=== PATIENT | male | born 1965 | race African-American/Black ===

== ENCOUNTER 2021-06-06 12:58 | Emergency (ER) | payer OTHER ==
--- OUTSIDE RECORDS SUMMARY | 2021-06-06 13:02 | XMS REPORT | Continuity of Care Document ---
:1965 Author Organization [facility] t Address [address] [place] [address] Care Team Providers Name Role Phone JASSON Primary Care Physician Unavailable Bambi CLASSIFICATION INSPECTOR Attending Clinician Subhash BLANK Attending Clinician BAMBI Attending Clinician Unavailable Jasson ZAMORA Attending Clinician Vania ZAMORA, A Attending Clinician Jozef ZAMORA Attending Clinician Nicole ZAMORA Attending Clinician Payers Payer Name Policy Type Policy Number Effective Date Expiration Date S ource Problems Condition Condition Condition Status Onset Resolution Last Treating Co mments Source Name Details Category Date Date Treatment Clinician Date 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, coma, 1-11 ity of chronic chronic 00:00: [address] [facility] Disease Active Unive rs discharge discharge 9-24 ity of follow-up follow-up 00:00: Hilario liu [address] [place] [address] 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 9-24 ity of of of 00:00: [place] pulmonary pulmonary 00 [facility] tomi artery artery Branch Pulmonary Pulmonary Disease Active Uni vers hypertensi hypertensi 02-13 it y of on on 00:00: [place] [facility] Need for Need for Disease Active Unive rs hepatitis hepatitis 02-13 ity of C C 00:00: [place] screening screening 00 Medi tomi test test Branch Balanitis Balanitis Disease Active Uni vers 1-07 ity of 00:00: [place] [facility] Abnormal Abnormal Disease Active 2019-05 Unive rs liver liver 0- ity of enzymes enzymes 00:00: [place] [facility] Anxiety Anxiety Disease Active 2019-05 Univers about about 0- ity of health health 00:00: [place] [facility] Need for Need for Disease Active 2019-05 Unive rs influenza influenza 0 ity of vaccinatio vaccinatio 00:00: [place] [facility] Arthritis Arthritis Disease Active Uni vers of left of left 01-31 ity of hip hip 00:00: [place] [facility] Chronic Chronic Disease Active Univers left hip left hip 01-31 ity of pain pain 00:00: [place] [facility] Dyspnea, Dyspnea, Disease Active Unive rs unspecifie unspecifie 01-31 it y of d type d type 00:00: [place] [facility] COVID-19 COVID-19 Disease Active Unive rs virus virus 11-20 ity of detected detected 00:00: [place] [facility] Nonischemi Nonischemi Disease Active 2019- U nivers c c 11-20 ity of cardiomyop cardiomyop 00:[place] [facility] Left heart Left heart Disease Active 2019- U nivers failure failure 11-20 ity of 00:00: [place] [facility] Dyslipidem Dyslipidem Disease Active 2020-0 U nivers ia ia 7 ity of 00:00: [place] [facility] Constipati Constipati Disease Active 2020-0 U nivers on, on, - ity of unspecifie unspecifie 00:00[place] 00 Medical constipati constipati Br anch on type on type Hemorrhoid Hemorrhoid Disease Active 2019- U nivers prolapse prolapse -14 ity of 00:00: [place] 00 Medical Branch Mild Mild Disease Active Univers intermitte intermitte 4-14 it y of nt asthma nt asthma 00:00[place] without without 00 Medical complicati complicati Br anch on on Inguinal Inguinal Disease Active Unive rs hernia, hernia, 3-27 ity of left left 00:00: [place] 00 Medical Branch Screening Screening Disease Active Overview: Univers for for 2-07 Formattin ity of colorectal colorectal 00:00: g of this [place] cancer cancer 00 note Medical might be Branch different from the original. Added automatic ally from request for surgery [id number] Need for Need for Disease Active 2018-05 Unive rs Tdap Tdap 2-03 ity of vaccinatio vaccinatio 00:00: [place] 00 Medical Branch Diabetic Diabetic Disease Active 2018-05 Unive rs eye exam eye exam 2-03 ity of 00:00: [place] 00 Medical Branch Erectile Erectile Disease Active 2018-05 Unive rs dysfunctio dysfunctio 0-16 it y of n, n, 00:00: [place] unspecifie unspecifie 00 Me dical d erectile d erectile Br anch dysfunctio dysfunctio n type n type S/P ICD S/P ICD Disease Active Overview: Univ ers (internal (internal 02-12 Formattin i ty of cardiac cardiac 00:00: g of this [place] defibrilla defibrilla 00 note Me dical tor) tor) might be Branch procedure procedure different from the original. Single lead Biotronik ICD placed by Dr. Judy borrero on 02/12/19 ICD ICD Disease Active Univers (implantab (implantab 02-12 it y of le le 00:00: [place] cardiovert cardiovert 00 Me dical er-defibri er-defibri Br anch llator) in llator) in place place JOS (acute JOS (acute Disease Active U nivers kidney kidney 12-28 ity of injury) injury) 00:00: [place] 00 Medical Branch HFrEF HFrEF Disease Active Univers (heart (heart 12-28 ity of failure failure 00:00: [place] with with 00 Medical reduced reduced Branch ejection ejection fraction) fraction) NEVIN NEVIN Disease Active Univers (obstructi (obstructi 12-24 it y of ve sleep ve sleep 00:00: [place] apnea) apnea) 00 Medical Branch Troponin I Troponin I Disease Active U nivers above above 8-04 ity of reference reference 00:00[place] range range 00 Medical Branch Atypical Atypical Disease Active Unive rs chest pain chest pain 8-03 it y of 00:00: [place] 00 Medical Branch Essential Essential Disease Active Uni vers hypertensi hypertensi 7-16 it y of on on 00:00: [place] 00 Medical Branch Type 2 Type 2 Disease Active Univers diabetes diabetes 7-16 ity of mellitus mellitus 00:00: [place] with with 00 Medical complicati complicati Br anch on, on, without without long-term long-term current current use of use of insulin insulin Chronic Chronic Disease Active 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 00:00: [place] and and 00 Medical diastolic diastolic Bran ch heart heart failure failure Family Family Disease Active Univers history of history of 7-16 it y of premature premature 00:00: [place] CAD CAD 00 Medical Branch ACC/AHA ACC/AHA Disease Active Univers stage C stage C 7-15 ity of congestive congestive 00:00: [place] heart heart 00 Medical failure failure Branch Obesity Obesity Disease Active Univers (BMI (BMI 7-15 ity of 30-39.9) 30-39.9) 00:00: [place] 00 Medical Branch Allergies, Adverse Reactions, Alerts Allergy Allergy Status Severity Reaction(s) Onset Inactive Treating Comm ents Source Name Type Date Date Clinician NO KNOWN Drug Active Univers ALLERGIE Class ity of S [place] [facility] Social History Social Habit Start Date Stop Date Quantity Comments Source Exposure to Not sure [place] of SARS-CoV-2 [place] [facility] (event) Branch History [facility] University o f Alcohol Comment [place] Med ical [facility] History of Chews Tobacco University of tobacco use [place] [facility] History [facility] University o f Alcohol Std [place] [facility] Drinks Branch History [facility] University o f Alcohol Binge [place] [facility] al [facility] Alcohol intake 2021-06-06 2021-06-06 Current drinker Unive rsity of 00:00:00 00:00:00 of alcohol [place] Medical (finding) Branch History SDOH 2018-12-23 2018-12-23 4 University o f Alcohol Frequency 00:00:00 00:00:00 [place] M edical Branch Tobacco use and 2017-12-04 2017-12-04 Current user Univers ity of exposure 00:00:00 00:00:00 [facility] Sex [birth year] At [birth year] Universit y of 00:00:00 00:00:00 [facility] Smoking Status Start Date Stop Date Source Never smoker [facility] Medications Ordered Filled Start Stop Current Ordering Indication Dosage Frequency Signature Comments Components Source Medication Medication Date Date Medication? Clinician (SIG) Name Name fluticasone 2020-05 Yes [id number] 2{puff} Inhale 2 Univers propionate 2-03 Puffs ity of 110 00:00: every 12 [place] mcg/actuati 00 (twelve) Medi tomi on inhaler hours. Branch fluticasone 2020-05 Yes [id number] 2{puff} Inhale 2 Univers propionate 2-03 Puffs ity of 110 00:00: every 12 [place] mcg/actuati 00 (twelve) Medi tomi on inhaler hours. Branch sildenafiL 2020-05 Yes [id number] 100mg Take 1 Univers 100 mg 0-26 tablet by ity of tablet 00:00: mouth as [place] 00 needed Medical (Erectile Branch Dysfunctio n). Take 30 minutes to 4H before sexual activity. Do not mix with alcohol or other medication s. sildenafiL 2020-05 Yes [id number] 100mg Take 1 Univers 100 mg 0-26 tablet by ity of tablet 00:00: mouth as [place] 00 needed Medical (Erectile Branch Dysfunctio n). Take 30 minutes to 4H before sexual activity. Do not mix with alcohol or other medication s. liraglutide Yes [id number] .6mg inject Univers 0.6 mg/0.1 9-24 0.6-1.2 mg ity of mL (18 mg/3 00:00: under the [place] mL) 00 skin Medical injection daily. Branch glipiZIDE Yes [id number] 10mg Take 1 Un justyna XL 10 mg 24 9-24 tablet by ity of hr tablet 00:00: mouth 2 [place] 00 (two) Medical times Branch daily with meals. liraglutide Yes [id number] .6mg inject Univers 0.6 mg/0.1 9-24 0.6-1.2 mg ity of mL (18 mg/3 00:00: under the [place] mL) 00 skin Medical injection daily. Branch glipiZIDE Yes [id number] 10mg Take 1 Un justyna XL 10 mg 24 9-24 tablet by ity of hr tablet 00:00: mouth 2 (two) Medical times Branch daily with meals. atorvastati Yes [id number] 40mg Take 1 Univers n 40 mg 4-14 tablet by ity of tablet 00:00: mouth at [place] 00 bedtime. Medical Branch albuterol Yes [id number] INHALE 2 Univers (PROAIR 4-14 PUFFS BY ity of HFA) 90 00:00: MOUTH [place] mcg/actuati 00 EVERY 4 Medic al on inhaler HOURS Branc h NEEDED FOR SHORTNESS OF BREATH OR WHEEZING sacubitriL- Yes [id number] 1{tbl} Take 1 Univers valsartan 4-14 tablet by ity o f (ENTRESTO) 00:00: mouth 2 [place] 49-51 mg 00 (two) Medical tablet times Branch daily. spironolact Yes [id number] 25mg Take 1 Univers one 25 mg 4-14 tablet by ity o f tablet 00:00: mouth 2 (two) Medical times Branch daily. Please call office for appointmen t for further refills, carvediloL Yes [id number] 25mg Take 1 U nivers 25 mg 4-14 tablet by ity of tablet 00:00: mouth 2 00 (two) Medical times Branch daily with meals. metformin Yes [id number] 1000mg Take 2 Univers ER 500 mg 4-14 tablets by ity of 24 hr 00:00: mouth [place] tablet 00 daily with Medical breakfast. Branch atorvastati Yes [id number] 40mg Take 1 Univers n 40 mg 4-14 tablet by ity of tablet 00:00: mouth at [place] 00 bedtime. Medical Branch albuterol Yes [id number] INHALE 2 Univers (PROAIR 4-14 PUFFS BY ity of HFA) 90 00:00: MOUTH [place] mcg/actuati 00 EVERY 4 Medic al on inhaler HOURS Branc h NEEDED FOR SHORTNESS OF BREATH OR WHEEZING sacubitriL- Yes [id number] 1{tbl} Take 1 Univers valsartan 4-14 tablet by ity o f (ENTRESTO) 00:00: mouth 2 [place] 49-51 mg 00 (two) Medical tablet times Branch daily. spironolact Yes [id number] 25mg Take 1 Univers one 25 mg 4-14 tablet by ity o f tablet 00:00: mouth 2 [place] 00 (two) Medical times Branch daily. Please call office for appointmen t for further refills, carvediloL Yes [id number] 25mg Take 1 U nivers 25 mg 4-14 tablet by ity of tablet 00:00: mouth 2 [place] 00 (two) Medical times Branch daily with meals. metformin Yes [id number] 1000mg Take 2 Univers ER 500 mg 4-14 tablets by ity of 24 hr 00:00: mouth [place] tablet 00 daily with Medical breakfast. Branch empaglifloz Yes [id number] 10mg Take 10 mg Univers in 1-12 by mouth ity of (JARDIANCE) 00:00: every [place] 10 mg Tab 00 morning. Medica l Branch empaglifloz Yes [id number] 10mg Take 10 mg Univers in 1-12 by mouth ity of (JARDIANCE) 00:00: every [place] 10 mg Tab 00 morning. Medica l Branch nystatin Yes [id number] Apply to Univers 100,000 1-07 area(s) 2 ity of unit/gram 00:00: (two) [place] cream 00 times Medical daily. Branch triamcinolo Yes [id number] Apply to Univers ne 1-07 area(s) 2 ity of acetonide 00:00: (two) [place] 0.1 % cream 00 times Medical daily. Branch nystatin Yes [id number] Apply to Univers 100,000 1-07 area(s) 2 ity of unit/gram 00:00: (two) [place] cream 00 times Medical daily. Branch triamcinolo 0 Yes [id number] Apply to Univers ne 1-07 area(s) 2 ity of acetonide 00:00: (two) [place] 0.1 % cream 00 times Medical daily. Branch furosemide 2019-05 Yes [id number] TAKE 1 & Univers 40 mg 1-11 101 1/2 (ONE & ity of tablet 00:00: ONE-HALF) 00 TABLETS BY Medical MOUTH IN Branch THE MORNING AND 1 & 1/2 (ONE & ONE-HALF) IN THE EVENING furosemide 2020-1 Yes [id number] TAKE 1 & Univers 40 mg 1-11 101 1/2 (ONE & ity of tablet 00:00: ONE-HALF) [place] 00 TABLETS BY Medical MOUTH IN Branch THE MORNING AND 1 & 1/2 (ONE & ONE-HALF) IN THE EVENING lidocaine 2020-1 Yes [id number] 1{patch Apply 1 Univers 1.8 % PtMd 0-01 } Patch to ity o f 00:00: area(s) [place] 00 daily. Medical Branch lidocaine 2020- Yes [id number] 1{patch Apply 1 Univers 1.8 % PtMd 0-01 } Patch to ity o f 00:00: area(s) [place] 00 daily. Medical Branch ipratropium 2020-0 Yes [id number] .5mg Inhale 2.5 Univers 0.02 % 9-11 mL every 6 ity of nebulizer 00:00: (six) [place] solution 00 hours as Medical needed for Branch Wheezing or Shortness of Breath. albuterol 2020-0 Yes [id number] 2.5mg Inhale 3 Univers 2.5 mg /3 9-11 mL every 6 ity of mL (0.083 00:00: (six) [place] %) 00 hours as Medical nebulizer needed for Bran ch solution Wheezing or Shortness of Breath. ipratropium 2020-0 Yes [id number] .5mg Inhale 2.5 Univers 0.02 % 9-11 mL every 6 ity of nebulizer 00:00: (six) [place] solution 00 hours as Medical needed for Branch Wheezing or Shortness of Breath. albuterol 2020-0 Yes [id number] 2.5mg Inhale 3 Univers 2.5 mg /3 9-11 mL every 6 ity of mL (0.083 00:00: (six) [place] %) 00 hours as Medical nebulizer needed for Bran ch solution Wheezing or Shortness of Breath. fluticasone 2020-0 Yes [id number] 1{spray Use 1 Univers propionate 6-02 } [place] in ity o f 50 00:00: each [place] mcg/actuati 00 nostril 2 Med ical on nasal (two) Branch spray times daily. fluticasone 2020-0 Yes [id number] 1{spray Use 1 Univers propionate 6-02 } [place] in ity o f 50 00:00: each [place] mcg/actuati 00 nostril 2 Med ical on nasal (two) Branch spray times daily. dibucaine 2020-0 Yes [id number] Apply to Univers (HEMORRHOID 4-14 area(s) 3 ity of AL-ANALGESI 00:00: (three) [place] C) 1 % 00 times Medical ointment daily as Branch needed for Pain. Phenyleph-P 2020-0 Yes [id number] Insert Univers ramoxin-Gly 4-14 into ity of cr-W.Pet 00:00: rectum 2 [place] 0.25-1 % 00 (two) Medical Crea times Branch daily as needed (Hemorrhoi d). PREPARATION 2019-0 Yes INSERT Univ ers H 4-14 INTO ity of HYDROCORTIS 00:00: RECTUM 2 [place] ONE 1 % 00 TIMES Medical cream DAILY Branch NEEDED dibucaine 2019-0 Yes [id number] Apply to Univers (HEMORRHOID 4-14 area(s) 3 ity of AL-ANALGESI 00:00: (three) [place] C) 1 % 00 times Medical ointment daily as Branch needed for Pain. Phenyleph-P 2019-0 Yes [id number] Insert Univers ramoxin-Gly 4-14 into ity of cr-W.Pet 00:00: rectum 2 [place] 0.25-1 % 00 (two) Medical Crea times Branch daily as needed (Hemorrhoi d). PREPARATION Yes INSERT Univ ers H 4-14 INTO ity of HYDROCORTIS 00:00: RECTUM 2 [place] ONE 1 % 00 TIMES Medical cream DAILY Branch NEEDED hydrocortis 2019-0 Yes [id number] 1{appli Insert 1 Univers one-pramovi 4-12 cator} Applicator ity of ne rectal 00:00: into [place] foam 00 rectum 2 Medical (two) Branch times daily. hydrocortis 2019-0 Yes [id number] 1{appli Insert 1 Univers one-pramovi 4-12 cator} Applicator ity of ne rectal 00:00: into [place] foam 00 rectum 2 Medical (two) Branch times daily. blood sugar Yes [id number] Use as Univers diagnostic 8-28 directed. ity of (BLOOD 00:00: BID. Dx. [place] GLUCOSE 00 E11.9 Medical TEST) [facility] blood sugar 2019-0 Yes [id number] Use as Univers diagnostic 01-17 directed. ity of (BLOOD 00:00: BID. Dx. [place] GLUCOSE 00 E11.9 Medical TEST) [facility] Immunizations Ordered Filled Immunization Date Status Comments [facility] e Immunization Name Name Influenza Virus 2021-04-20 Completed Universit y of Vaccine Quad IM, 00:00:[address] [facility] dical Preserv and ABX Branch Free 6 MO-64 YRS Influenza Virus 2021-04-20 Completed Universit y of Vaccine Quad IM, 00:00:[address] [facility] dical Preserv and ABX Branch Free 6 MO-64 YRS SARS-COV-2 COVID-19 2021-01-29 Completed Unive rsity of MODERNA VACCINE 00:00:00 [facility] SARS-COV-2 COVID-19 2021-01-29 Completed Unive rsity of MODERNA VACCINE 00:00:00 [facility] SARS-COV-2 COVID-19 2020-06-26 Completed Unive rsity of MODERNA VACCINE 00:00:00 [facility] SARS-COV-2 COVID-19 2020-06-26 Completed Unive rsity of MODERNA VACCINE 00:00:00 [facility] SARS-COV-2 COVID-19 2020-05-29 Completed Unive rsity of MODERNA VACCINE 00:00:00 [facility] SARS-COV-2 COVID-19 2020-05-29 Completed Unive rsity of MODERNA VACCINE 00:00:00 [facility] Influenza Virus 2020-02-21 Completed Universit y of Vaccine Quad .5 mL 00:00:00 [facility] 6+ MO Branch Influenza Virus 2020-02-21 Completed Universit y of Vaccine Quad .5 mL 00:00:00 [facility] [place] IM 6+ MO Branch TDAP 2019-04-24 Completed University 00:00:00 [facility] Pneumococcal 2019-04-24 Completed University o f Polysaccharide, 00:00:00 [facility] PPSV23 (PNEUMOVAX) Branch [facility] 2019-04-24 Completed University 00:00:00 [facility] Pneumococcal 2019-04-24 Completed University o f Polysaccharide, 00:00:00 [place] Med ical PPSV23 (PNEUMOVAX) Branch Influenza Virus 2019-03-07 Completed Universit y of Vaccine Quad .5 mL 00:00:00 [place] Medical IM 6+ MO Branch Influenza Virus 2019-03-07 Completed Universit y of Vaccine Quad .5 mL 00:00:00 [facility] [place] IM 6+ MO Branch Vital Signs Vital Name Observation Time Observation Value Comments Source Systolic blood 2021-06-06 18:10:00 130 mm[Hg] Univer sity of pressure [facility] Diastolic blood 2021-06-06 18:10:00 85 mm[Hg] Unive rsity of pressure [facility] Heart rate 2021-06-06 18:10:00 85 /min Universi ty of [facility] Body temperature 2021-06-06 18:10:00 36.11 Josselin Univ ersity [facility] Respiratory rate 2021-06-06 18:10:00 26 /min Univ ersity [facility] Body height 2021-06-06 18:10:00 180.3 cm Universi ty [facility] Body weight 2021-06-06 18:10:00 105.915 kg Universi ty of [place] [facility] [place] BMI 2021-06-06 18:10:00 32.57 kg/m2 Universi ty [facility] Oxygen saturation in 2021-06-06 18:10:00 98 /min University of Arterial blood by [facility] Pulse oximetry Branch Systolic blood 2021-06-02 19:29:00 112 mm[Hg] Univer sity of [facility] Diastolic blood 2021-06-02 19:29:00 67 mm[Hg] Unive rsity of [facility] Heart rate 2021-06-02 19:29:00 79 /min Universi ty of [place] [facility] [place] Body weight 2021-06-02 19:24:00 107.366 kg Universi ty of [place] [facility] [place] BMI 2021-06-02 19:24:00 33.01 kg/m2 Universi ty [facility] Oxygen saturation in 2021-06-02 19:24:00 97 /min University of Arterial blood by [facility] Pulse oximetry Branch Body temperature 2021-06-02 19:24:00 36.67 Josselin Univ ersity [facility] Respiratory rate 2021-06-02 19:24:00 18 /min Univ ersity [facility] Body height 2021-06-02 19:24:00 180.3 cm Universi ty [facility] Procedures This patient has no known procedures. Encounters Start End Encounter Admission Attending Care Care Encounter Source Date/Time Date/Time Type Type Clinicians Facility Department ID 2021-06-06 2021-06-06 Urgent Sally Alves [facility] [id number] Univers 12:00:00 12:20:00 Care Elaine Cullen [facility] [id number] ity fabian [place] [id number] [place] as SHEL[place]?BLEA [phone] Tn dical KNEY [address] [place] [address] MEDICAL OFFICE BUILDING 2021-06-06 2021-06-06 Outpatient R [facility] [id number] Univers 12:00:00 12:00:00 [id number] [facility] 2021-06-06 2021-06-06 [facility] [id number] Univers 12:00:00 12:00:00 SALLY bryant o f [facility] 2021-06-02 2021-06-03 [facility] [id number] Univers 13:20:00 08:31:22 Visit Osmany RAM [id number] i ty [facility] [id number] PROFESSIO [id number] Tn pamsusan [place] [address] Branch BUILDING 2020-07-04 2020-07-[address] [facility] [id number] 00:00:00 00:00:00 [facility] [id number] Clear [id number] [place] [phone] [place] [address] Office Building 2020-06-23 2020-06-23 [facility] [id number] 00:00:00 00:00:00 [facility]ivam [facility] [id number] [place] [id number] [place] [phone] Medical [facility] Office Building 2020-06-20 2020-06-20 [facility] [id number] 11:12:26 23:59:00 Encounter [facility]ivam [facility] [id number] Clear [id number] [place] [id number] [place] [address] ([facility]) 2020-06-20 2020-06-20 [facility] [id number] 11:12:10 23:59:00 Encounter [facility]ivam [facility] [id number] Clear [id number] [place] [id number] [place] [address] ([facility]) 2020-06-18 2020-06-18 [facility] [id number] 07:41:36 23:59:00 Encounter [facility]am [facility] [id number] Clear [id number] [place] [id number] [place] [address] ([facility]) 2020-06-18 2020-06-18 Office Nicole [facility] [id number] 10:13:23 11:07:02 Visit [facility] HEALTH [id number] EYE [id number] ANAHEIM [id number] [facility] 2020-06-18 2020-06-18 [facility] [id number] 07:40:43 07:40:43 Encounter [facility]am [facility] [id number] Clear [id number] [place] [id number] [place] [address] ([facility]) 2020-06-18 2020-06-18 [facility] [id number] 07:39:57 07:39:57 Encounter [facility]ivam [facility] [id number] Clear [id number] [place] [id number] [place] [address] ([facility]) Results This patient has no known results.
[2021-06-06 14:05] LABS: Urine Blood Negative (Negative); Urine Glucose 2+ (Negative); Urine Protein Negative (Negative); Urine Specific Gravity >=1.030 (1.005-1.030); Urine pH 5.5 (5.0-7.0)
[2021-06-06 14:29] LABS: Hematocrit 46.7 % (39.6-49.0); Lymphocytes % 30.3 % (15.3-44.8); MPV 10.8 fL (7.6-11.3); RBC Red Blood Cell Count 5.59 M/uL (4.33-5.43)
[2021-06-06 14:32] LABS: Protime INR 0.85
[2021-06-06 14:50] LABS: Albumin 3.2 g/dL (3.4-5.0); Bilirubin Direct 0.1 mg/dL (0-0.2); Bilirubin Total 0.3 mg/dL (0.2-1.0); Magnesium 2.8 mg/dL (1.8-2.4); Potassium 4.1 mmol/L (3.5-5.1); Protein, Total 7.7 g/dL (6.4-8.2); Troponin High Sensitivity 47.3 pg/mL (<58.9)
--- NOTE | 2021-06-06 15:28 | RAD REPORT ---
EXAM DESCRIPTION: RAD - Chest Single View - 06/06/2021 3:09 pm CLINICAL HISTORY: Congestion;Dyspnea COMPARISON: CHEST PA AND LAT 2 VIEW dated 09/11/2012; CHEST SINGLE VIEW dated 05/29/2012 FINDINGS: Lines: Defibrillator Lungs: No evidence of edema or pneumonia. Pleural: No significant pleural effusions or pneumothorax. Cardiac: The heart size is within normal limits. Bones: No acute fractures. Other: IMPRESSION: No acute cardiopulmonary disease.
[2021-06-06] MEDS ORDERED: FUROSEMIDE 20 MG/ 2ML VIAL ONE (16:41)
--- NOTE | 2021-06-06 16:42 | ER ---
Nurse's Notes [facility] Name: Rajiv Brown Age: 56 yrs Sex: Male : 1965 Arrival Date: 06/06/2021 Time: 13:01 Bed 4 Private MD: Diagnosis: Systolic (congestive) heart failure;Dyspnea;Acute on chronic systolic (congestive) heart failure Presentation: 06/06 13:06 Chief complaint: Patient states: 1:30 or 2 am this morning i couldn't lay flat and i tw2 couldn't breathe. i think its fluid around my heart again. i was thinking it was asthma with my inhaler but it didn't do any good. i have been taking my fluid pill. Coronavirus screen: shortness of breath, Client presents with at least one sign or symptom that may indicate coronavirus-19. Standard/surgical mask placed on the client. Provider contacted for isolation considerations. Ebola Screen: Patient denies travel to an Ebola-affected area in the 21 days before illness onset. Initial Sepsis Screen: Does the patient meet any 2 criteria? No. Patient's initial sepsis screen is negative. Does the patient have a suspected source of infection? No. Patient's initial sepsis screen is negative. Risk Assessment: Do you want to hurt yourself or someone else? Patient reports no desire to harm self or others. Onset of symptoms was June 06, 2021. 13:06 Method Of Arrival: Ambulatory tw2 13:06 Acuity: SHERITA 3 tw2 Triage Assessment: 13:14 General: Appears in no apparent distress. well groomed, Behavior is calm, cooperative, tw2 appropriate for age. Pain: Denies pain. Respiratory: Reports shortness of breath at rest on exertion Onset: The symptoms/episode began/occurred this morning, the patient has mild shortness of breath. Historical: - Allergies: 13:08 No Known Allergies; tw2 - Home Meds: 13:08 Jardiance 10 mg oral tab 1 tab once daily [Active]; sildenafil 100 mg oral tab 1 tab tw2 once daily [Active]; spironolactone 25 mg Oral tab 1 tab once daily [Active]; metformin 500 mg Oral tab 1 tab 2 times per day [Active]; ipratropium bromide 0.02 % inhalation soln 2.5 mL 3 times per day [Active]; glipizide 10 mg Oral tab 1 tab once daily [Active]; furosemide 40 mg Oral tab 1 tab once daily [Active]; Entresto 49-51 mg oral tab 1 tab 2 times per day [Active]; carvedilol 25 mg oral tab 1 tab 2 times per day [Active]; albuterol sulfate 2.5 mg/0.5 mL Inhl nebu 0.5 mL 3 times per day [Active]; - PMHx: 13:08 Hypertensive disorder; Diabetes mellitus; tw2 - Immunization history:: Client reports receiving the 2nd dose of the Covid vaccine. - Social history:: Smoking status: Patient denies any tobacco usage or history of. Screenin:07 Abuse screen: Denies threats or abuse. Denies injuries from another. Nutritional jg9 screening: No deficits noted. Tuberculosis screening: No symptoms or risk factors identified. Fall Risk None identified. Assessment: 14:25 General: Appears in no apparent distress. uncomfortable, Behavior is calm, cooperative, ww appropriate for age. Pain: Denies pain. Neuro: Level of Consciousness is awake, alert, obeys commands, Oriented to person, place, time, situation. Cardiovascular: Reports shortness of breath, Capillary refill < 3 seconds. Respiratory: Reports shortness of breath labored breathing. GI: No deficits noted. No signs and/or symptoms were reported involving the gastrointestinal system. : No deficits noted. : No signs and/or symptoms were reported regarding the genitourinary system. EENT: No deficits noted. No signs and/or symptoms were reported regarding the EENT system. Derm: No deficits noted. No signs and/or symptoms reported regarding the dermatologic system. Skin is intact, Skin is pink, warm \T\ dry. Musculoskeletal: No deficits noted. No signs and/or symptoms reported regarding the musculoskeletal system. 14:30 Respiratory: Airway is patent Respiratory effort is patient reports sob, an patient jg9 seemed to be winded with minimal movement/exertion. 14:30 Respiratory: Breath sounds are clear bilaterally. jg9 14:30 Cardiovascular: Rhythm is sinus rhythm. jg9 16:17 Reassessment: Patient appears in no apparent distress at this time. No changes from ww previously documented assessment. Patient and/or family updated on plan of care and expected duration. Pain level reassessed. Patient is alert, oriented x 3, equal unlabored respirations, skin warm/dry/pink. Vital Signs: 13:06 BP 128 / 81; Pulse 86; Resp 17; Temp 97.9(TE); Pulse Ox 100% on R/A; Weight 105.69 kg; tw2 Height 5 ft. 11 in. (180.34 cm) (R); 14:25 BP 152 / 99; Pulse 101; Resp 19; ww 15:30 BP 106 / 89; Pulse 100; Resp 19 S; Pulse Ox 96% on R/A; jg9 13:06 Body Mass Index 32.50 (105.69 kg, 180.34 cm) tw2 ED Course: 13:01 Patient arrived in ED. ds1 13:08 Triage completed. tw2 13:14 Arm band placed on. tw2 13:20 Deniz Stover MD is Attending Physician. [facility] 13:31 Francisca Madera, RN is Primary Nurse. jg9 14:15 Patient has correct armband on for positive identification. Bed in low position. Call jg9 light in reach. 14:18 Basic Metabolic Panel Sent. ww 14:18 CBC with Diff Sent. ww 14:30 Inserted saline lock: 20 gauge 22 gauge in left antecubital area, using aseptic jg9 technique. 15:09 XRAY Chest (1 view) In Process Unspecified. EDMS 16:34 No apparent distress. Resting quietly. Pt visited by . jg9 16:40 Travis Rivera MD is Hospitalizing Provider. gogo Administered Medications: 16:44 Drug: Lasix (furosemide) 20 mg Route: IVP; Site: right antecubital; jg9 Outcome: 16:42 Decision to Hospitalize by Provider. gogo 20:48 Patient left the ED. lp1 Signatures: Dispatcher [employer] EDFL Deniz Stover MD MD cha Sanford, Demi ds1 Kari Hernandez, RN RN lp1 Leatha Garza RN RN tw2 Francisca Madera, CRESENCIO DUPONT jg9 Roberta aBe, CRESENCIO RN ww
--- NOTE | 2021-06-06 16:42 | EDPHYS ---
Physician Documentation [facility] Name: Rajiv Brown Age: 56 yrs Sex: Male : 1965 Arrival Date: 06/06/2021 Time: 13:01 Bed 4 Private MD: ED Physician Deniz Stover HPI: 06/06 16:31 This 56 yrs old Black Male presents to ER via Ambulatory with complaints of Shortness gogo Of Breath. 16:31 The patient has shortness of breath at rest, with light activity. Onset: The gogo symptoms/episode began/occurred 2 day(s) ago. Duration: The symptoms are continuous, and are steadily getting worse. The patient's shortness of breath is aggravated by supine position, walking. Associated signs and symptoms: Pertinent positives: non-productive cough. Severity of symptoms: At their worst the symptoms were moderate in the emergency department the symptoms are unchanged. The patient has experienced similar episodes in the past, multiple times. Historical: - Allergies: 13:08 No Known Allergies; tw2 - Home Meds: 13:08 Jardiance 10 mg oral tab 1 tab once daily [Active]; sildenafil 100 mg oral tab 1 tab tw2 once daily [Active]; spironolactone 25 mg Oral tab 1 tab once daily [Active]; metformin 500 mg Oral tab 1 tab 2 times per day [Active]; ipratropium bromide 0.02 % inhalation soln 2.5 mL 3 times per day [Active]; glipizide 10 mg Oral tab 1 tab once daily [Active]; furosemide 40 mg Oral tab 1 tab once daily [Active]; Entresto 49-51 mg oral tab 1 tab 2 times per day [Active]; carvedilol 25 mg oral tab 1 tab 2 times per day [Active]; albuterol sulfate 2.5 mg/0.5 mL Inhl nebu 0.5 mL 3 times per day [Active]; - PMHx: 13:08 Hypertensive disorder; Diabetes mellitus; tw2 - Immunization history:: Client reports receiving the 2nd dose of the Covid vaccine. - Social history:: Smoking status: Patient denies any tobacco usage or history of. ROS: 16:33 Constitutional: Negative for fever, chills, and weight loss, Eyes: Negative for injury, gogo pain, redness, and discharge, ENT: Negative for injury, pain, and discharge, Neck: Negative for injury, pain, and swelling, Cardiovascular: Negative for chest pain, palpitations, and edema, Respiratory: Negative for shortness of breath, cough, wheezing, and pleuritic chest pain, Abdomen/GI: Negative for abdominal pain, nausea, vomiting, diarrhea, and constipation, Back: Negative for injury and pain, : Negative for injury, bleeding, discharge, and swelling, MS/Extremity: Negative for injury and deformity, Skin: Negative for injury, rash, and discoloration, Neuro: Negative for headache, weakness, numbness, tingling, and seizure, Psych: Negative for depression, anxiety, suicide ideation, homicidal ideation, and hallucinations, Allergy/Immunology: Negative for hives, rash, and allergies, Endocrine: Negative for neck swelling, polydipsia, polyuria, polyphagia, and marked weight changes, Hematologic/Lymphatic: Negative for swollen nodes, abnormal bleeding, and unusual bruising. Exam: 16:33 Constitutional: This is a well developed, well nourished patient who is awake, alert, gogo and in no acute distress. Head/Face: Normocephalic, atraumatic. Eyes: Pupils equal round and reactive to light, extra-ocular motions intact. Lids and lashes normal. Conjunctiva and sclera are non-icteric and not injected. Cornea within normal limits. Periorbital areas with no swelling, redness, or edema. ENT: Nares patent. No nasal discharge, no septal abnormalities noted. Tympanic membranes are normal and external auditory canals are clear. Oropharynx with no redness, swelling, or masses, exudates, or evidence of obstruction, uvula midline. Mucous membranes moist. Neck: Trachea midline, no thyromegaly or masses palpated, and no cervical lymphadenopathy. Supple, full range of motion without nuchal rigidity, or vertebral point tenderness. No Meningismus. Chest/axilla: Normal chest wall appearance and motion. Nontender with no deformity. No lesions are appreciated. Cardiovascular: Regular rate and rhythm with a normal S1 and S2. No gallops, murmurs, or rubs. Normal PMI, no JVD. No pulse deficits. Respiratory: Lungs have equal breath sounds bilaterally, clear to auscultation and percussion. No rales, rhonchi or wheezes noted. No increased work of breathing, no retractions or nasal flaring. Abdomen/GI: Soft, non-tender, with normal bowel sounds. No distension or tympany. No guarding or rebound. No evidence of tenderness throughout. Back: No spinal tenderness. No costovertebral tenderness. Full range of motion. Male : Normal genitalia with no discharge or lesions. Skin: Warm, dry with normal turgor. Normal color with no rashes, no lesions, and no evidence of cellulitis. 16:33 Cardiovascular: Rate: normal, Rhythm: regular, Pulses: Pulses are 4+ in bilateral radial, brachial, femoral, popliteal, posterior tibial and and dorsalis pedis arteries.. Heart sounds: normal, Edema: is not appreciated, JVD: is noted bilaterally, to 3 cm. 16:33 ECG was reviewed by the Attending Physician. Vital Signs: 13:06 BP 128 / 81; Pulse 86; Resp 17; Temp 97.9(TE); Pulse Ox 100% on R/A; Weight 105.69 kg; tw2 Height 5 ft. 11 in. (180.34 cm) (R); 14:25 BP 152 / 99; Pulse 101; Resp 19; ww 15:30 BP 106 / 89; Pulse 100; Resp 19 S; Pulse Ox 96% on R/A; jg9 13:06 Body Mass Index 32.50 (105.69 kg, 180.34 cm) tw2 MDM: 13:20 Patient medically screened. gogo 16:38 Differential diagnosis: Bronchitis CHF exacerbation, pulmonary edema, Pulmonary gogo Embolism. Antibiotic administration: Not indicated. The patient's Wells Deep Vein Thrombosis Score was calculated as follows: Total Score: 0-2 Pts- Low Risk. The patient's pulmonary embolism risk score was calculated as follows: Total Score: 0-2 points. This patient was found to be at low risk for a pulmonary embolism by using the Well's assessment criteria. Immunization status: Influenza vaccine:. Data reviewed: vital signs, nurses notes, lab test result(s), EKG, radiologic studies, plain films. Data interpreted: hydramatic mechanic: rate is 100 beats/min, rhythm is regular, Pulse oximetry: on room air is 96 %. Counseling: I had a detailed discussion with the patient and/or guardian regarding: the historical points, exam findings, and any diagnostic results supporting the discharge/admit diagnosis, lab results, radiology results, the need for further work-up and treatment in the hospital. 06/06 13:25 Order name: Basic Metabolic Panel [facility] 06/06 13:25 Order name: CBC with Diff 06/06 13:25 Order name: LFT's; Complete Time: 15:18 gogo 06/06 13:25 Order name: Magnesium; Complete Time: 15:18 06/06 13:25 Order name: NT PRO-BNP; Complete Time: 15:18 06/06 13:25 Order name: PT-INR; Complete Time: 15:18 06/06 13:25 Order name: Troponin HS; Complete Time: 15:18 06/06 13:25 Order name: XRAY Chest (1 view); Complete Time: 16:29 gogo 06/06 13:25 Order name: EKG; Complete Time: 13:26 gogo 06/06 13:25 Order name: SARS-COV-2 RT PCR (Document "Date of Onset" if Symptomatic) [facility] 06/06 13:26 Order name: Basic Metabolic Panel; Complete Time: 15:18 EDNM 06/06 13:26 Order name: CBC with Automated Diff; Complete Time: 15:18 EDNM 06/06 14:05 Order name: Urine Dipstick-Ancillary; Complete Time: 15:18 EDNM 06/06 13:25 Order name: Cardiac monitoring; Complete Time: 13:59 06/06 13:25 Order name: EKG - Nurse/Tech; Complete Time: 13:59 [facility] 06/06 13:25 Order name: IV Saline Lock; Complete Time: 14:18 gogo 06/06 13:25 Order name: Labs collected and sent; Complete Time: 14:18 gogo 06/06 13:25 Order name: O2 Per Protocol; Complete Time: 13:59 06/06 13:25 Order name: O2 Sat Monitoring; Complete Time: 13:59 gogo 06/06 13:25 Order name: Urine Dipstick-Ancillary (obtain specimen); Complete Time: 14:11 [facility] EC:33 Rate is 62 beats/min. Rhythm is regular. QRS [place] is Normal. CA interval is normal. QRS gogo interval is normal. QT interval is normal. No Q waves. T waves are Normal. No ST changes noted. Clinical impression: NSR w/ Non-specific ST/T Changes and No evidence of ischemia. Interpreted by me. Reviewed by me. Administered Medications: 16:44 Drug: Lasix (furosemide) 20 mg Route: IVP; Site: right antecubital; jg9 Disposition Summary: 06/06/21 16:42 Hospitalization Ordered Hospitalization Status: Observation gogo Provider: Travis Rivera cha Location: Telemetry/MedSurg (observation) gogo Condition: Fair gogo Problem: new gogo Symptoms: have improved gogo Bed/Room Type: Standard gogo Room Assignment: gogo Diagnosis - Systolic (congestive) heart failure gogo - Dyspnea gogo - Acute on chronic systolic (congestive) heart failure gogo Forms: - Medication Reconciliation Form gogo - SBAR form gogo Signatures: Dispatcher [employer] EDDeniz Dunbar MD MD cha Wise, Tara, RN RN tw2 Francisca Madera RN RN jg9
[2021-06-06] MEDS ORDERED: ACETAMINOPHEN 500 MG TAB PO PRN (17:43)
[2021-06-06] MEDS ORDERED: ONDANSETRON 4 MG/2 ML VIAL IV PRN (17:43)
[2021-06-06] MEDS ORDERED: POTASSIUM 25 MEQ EFFERV TAB PO SCH (21:00)
[2021-06-06] MEDS ORDERED: METOPROLOL TAR 50 MG TAB PO SCH (21:00)
[2021-06-06 22:57] VITALS: TEMP 97.9
[2021-06-06 22:59] VITALS: BP 106/89; O2SAT 96
[2021-06-07] MEDS ORDERED: ASPIRIN EC 81 MG TAB PO SCH (09:00)
[2021-06-07] MEDS ORDERED: ENOXAPARIN 40 MG/0.4 ML SQ SCH (09:00)
[2021-06-07] MEDS ORDERED: FUROSEMIDE 40 MG/4 ML VIAL IV SCH (09:00)
== END 2021-06-06 20:40 | disposition left against medical advice (07) ==
LOC: ER 12:58
DX: I50.23 Acute on chronic systolic (congestive) heart failure (principal); I10 Essential (primary) hypertension; E11.9 Type 2 diabetes mellitus without complications; Z20.822 Contact with and (suspected) exposure to COVID-19
CPT/HCPCS: 93005; 85025; 80048; 36415; 83735; 85610; 80076; 81003; 84484; 83880; 71045; 96374; 99284; U0003; J1940